=== PATIENT | female | born 1990 | race Caucasian/White ===

== ENCOUNTER 2019-11-12 22:42 | Emergency (ER) | payer SELFPAY ==
[~2019-11-12] VITALS: Ht 154.9 cm; Wt 53.2 kg
[2019-11-12 22:45] VITALS: Ht 154.9 cm; Wt 53.2 kg
[2019-11-12] MEDS ORDERED: FERROUS SULFAT325 MG PO (22:46)
[2019-11-12 23:08] LABS: BASOPHILS 0.3 % (0-2); EOSINOPHILS 0.1 % (0-7); HEMATOCRIT 44.4 % (36.0-48.0); HEMOGLOBIN 15.1 g/dL (12-16); IMMATURE GRANULOCYTES 0.1 % (0-5); LYMPHOCYTES 32.6 % (15-50); MCH 33.8 pg (26.0-34.0); MCV 99.3 fL (80.0-100.0); MEAN PLATELET VOLUME 9.6 fL (7.4-10.4); MONOCYTES 12.4 % (2-11); NEUTROPHILS 54.5 % (40-80); PLATELET COUNT 203 10x3/uL (130-400); RBC 4.47 10x6/uL (4.00-5.40); RDW 13.1 % (11.5-14.5)
[2019-11-12 23:17] LABS: ANION GAP 14.2 mmol/L (8-16); CALCIUM 9.9 mg/dL (8.5-10.1); CARBON DIOXIDE 27.6 mmol/L (21.0-32.0); CREATININE - SERUM 1.1 mg/dL (0.6-1.3); POTASSIUM - SERUM 3.8 mmol/L (3.5-5.1)
[2019-11-12 23:22] LABS: GLUCOSE NEGATIVE (NEGATIVE); HCG URINE NEGATIVE (NEGATIVE); NITRITE NEGATIVE (NEGATIVE); SPECIFIC GRAVITY 1.015 (1.005-1.020)
[2019-11-12 23:23] LABS: BILIRUBIN NEGATIVE (NEGATIVE); KETONE NEGATIVE (NEGATIVE); UROBILINOGEN NORMAL (NORMAL)
[2019-11-12 23:25] LABS: BACTERIA NONE SEEN /hpf (NEGATIVE); EPITHELIAL CELLS 0-5 /hpf (0-5); RED CELLS - URINE 0-5 /hpf (0-5); WHITE CELLS - URINE NSEEN /hpf (NEGATIVE)
[2019-11-12 23:30] LABS: UDS - AMPHET NEGATIVE QUAL (NEGATIVE); UDS - BARB NEGATIVE QUAL (NEGATIVE); UDS - BENZO NEGATIVE QUAL (NEGATIVE); UDS - COCAINE NEGATIVE QUAL (NEGATIVE); UDS - OPIATE NEGATIVE QUAL (NEGATIVE); UDS - PCP NEGATIVE QUAL (NEGATIVE); UDS - THC POSITIVE QUAL (NEGATIVE)
[2019-11-12 23:32] LABS: ALBUMIN 4.6 g/dL (3.4-5.0); BILIRUBIN - TOTAL 1.15 mg/dL (0.2-1.3); C-REACTIVE PROTEIN 0.4 mg/dL (0.0-0.9)
[2019-11-13 02:06] VITALS: BP 114/62
[2019-11-16 13:10] LABS: EHRLICHIA CHAFF IGG Negative (Neg:<1:64); EHRLICHIA CHAFF IGM Negative (Neg:<1:20); HGE IGG TITER Negative (Neg:<1:64); HGE IGM TITER Negative (Neg:<1:20)
== END 2019-11-13 02:06 | disposition home or self-care (01) ==
LOC: D.ER 22:42
PROVIDERS: Family Medicine
DX: R00.2 Palpitations (principal); B34.9 Viral infection, unspecified; R11.2 Nausea with vomiting, unspecified; R53.81 Other malaise; R50.9 Fever, unspecified

== ENCOUNTER → 2020-04-01 13:56 | Outpatient (CLI) | payer MEDICAID ==
[2019-11-12 22:45] VITALS: BMI 22.1
--- NOTE | ~2020-04-01 | ST ---
PATIENT:ZACHARY MARQUEZ MEDICAL RECORD: [id number] SEX: F LOCATION:[facility] ORDER #: ADMISSION DATE: 04/01/20 AGE OF PATIENT: 29 REFERRING PHYSICIAN: INTERPRETING PHYSICIAN: ISABEL HANSEN MD DATE OF SERVICE: 04/01/2020 PROCEDURE: Treadmill stress test. Baseline ECG is normal. Exercised for 9 minutes on Yong protocol. Maximum heart rate is 159 beats per minute, less than 85% max predicted. No ECG changes of ischemia. No symptoms of ischemia. Normal blood pressure response to exercise. No arrhythmias noted. Fair exercise tolerance for age. TRANSINT:[id number] Voice Confirmation ID: [id number] DOCUMENT ID: [id number] ISABEL HANSEN MD CC: [id number] DICTATION DATE: 04/02/20 1452 IRRIGATOR HEAD: 04/03/20 1138 DEP CLI 04/01/20 [facility] [address] [place] [address]
--- NOTE | ~2020-04-01 | EC ---
PATIENT:ZACHARY MARQUEZ DATE OF SERVICE: 04/01/20 SEX: F MEDICAL RECORD: [id number] DATE OF : [birth year] LOCATION:[facility] AGE OF PATIENT: 29 ADMISSION DATE: 04/01/20 REFERRING PHYSICIAN: INTERPRETING PHYSICIAN: ISABEL HANSEN MD ECHOCARDIOGRAM REPORT ECHO CHARGES 4 ECHO COMPLETE Date: 04/01/20 CLINICAL DIAGNOSIS: HEART MURMUR ECHOCARDIOGRAPHIC MEASUREMENTS (adult normal given) AC root (d.<3.7cm) 2.3 cm LV Septum d (<1.2 cm> 1.1 cm Valve Excursion 1.3 cm LV Septum (systole) 1.6 cm Left Atria (s.<4.0cm> 2.7 cm LVPW d(<1.2cm) 1.2 cm RV (d.<2.3cm) 3.3 cm LVPW (sytole) 1.5 cm LV diastole(<5.6CM) 4.6 cm MV E-F(>70mm/sec) cm LV systole 2.6 cm LVOT Diameter 1.5 cm MV exc.(>10mm) 1.4 cm Est.ejection fraction (50-75%) % DOPPLER: LVIT cm/sec A 61.0 cm/sec E 106.0 cm/sec LA cm/sec RVSP 28 mmHg LVOT 136 cm/sec AOP1/2T m/s Asc. 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 Sanchez TAPE# PACS Pericardial Effusion N DATE OF SERVICE: Adequate 2D, color flow imaging, spectral Doppler, and M-mode. No LVH. LV internal dimensions are normal. Wall motion is normal. EF is greater than or equal to 55%. Aortic valve is tricuspid with good valve excursion. No evidence of AI by color flow imaging. Left atrium is normal. Mitral valve appears normal. Trivial MR. Right-sided chambers are normal. Trivial TR. ECHOCARDIOGRAM REPORT [id number] ZACHARY MARQUEZ TRANSINT:[id number] Voice Confirmation ID: [id number] DOCUMENT ID: [id number] ISABEL HANSEN MD CC: [id number] DICTATION DATE: 04/02/20 1503 MANUFACTURING PROJECT MANAGER: 04/02/20 2326 DEP CLI 04/01/20 [id number] [place] [address]
[~2020-04-01 13:56] MED LIST: FERROUS SULFAT325 MG PO
== END | disposition home or self-care (01) ==
LOC: D.HCCECHO 13:56
PROVIDERS: ATTEND Internal Medicine Interventional Cardiology
DX: R55 Syncope and collapse (principal); R01.1 Cardiac murmur, unspecified